=== PATIENT | male | born 1990 | race American Indian/Alaskan Native ===

== ENCOUNTER 2016-12-21 07:41 | Emergency (ER) | payer SELFPAY ==
[2016-12-21 08:10] VITALS: BP 131/76
[2016-12-21 09:09] LABS: Bilirubin,Urine NEG (Negative); Blood,Urine NEG (Negative); Ketones,Urine NEG (Negative); Leukocyte Esterase,Urine NEG (Negative); Mucus,Urine FEW /HPF; Nitrite,Urine NEG (Negative); Protein,Urine <15 mg/dL mg/dL (Negative); Urobilinogen,Urine < 2.0 mg/dL (<2.0)
[2016-12-21] MEDS ORDERED: DECADRON IM STA (10:22)
--- NOTE | 2016-12-21 10:46 | Emergency Department Report ---
Entered by ISAAC SCHULER, acting as scribe for TOÑITO BELTRAN PA. ED Male HPI - General Chief complaint: Urogenital-Male Stated complaint: SOB/POSS UTI/POSS ALLERGIC REACTION Time Seen by Provider: 12/21/16 09:15 Source: patient Mode of arrival: Ambulatory Limitations: No Limitations - History of Present Illness Initial comments: 26 y/o male with no significant PMHx presents to the ED c/o a generalized rash that began 2 days ago. Associated symptoms include dyrsuria that began 1 month ago, episodic. Low back pain he thinks is work related, and penile redness, but he denies penile discharge, fever, chills, nausea, and vomiting. Abdominal pain. Took Benadryl for rash with no relief. Took Ibuprofen for dysuria with no relief. Notes that he was sexually active 2 months ago. NKDA. Patient has been here multiple times for similar complaints of genitourinary normal abnormality. He was treated in 2016 for epididymitis and was given doxycycline. Since that he is not concerned for STD he wants to know if he has a urinary tract infection. MD Complaint: dysuria Onset/Timin -: days(s) (generalized rash) Location: penis Radiation: none Severity: moderate Severity scale (0 -10): 7 Quality: burning Consistency: intermittent Improves with: none Worsens with: urination denies other symptoms, dysuria. denies: discharge, swelling, mass, urinary retention, blood in urine, fever, nausea/vomiting, incontinence, other (dysuria and cough, but reports shortness of breath) - Related Data Sexually active: Yes (2 months ago) Previous Rx's Medication Instructions Recorded Last Taken Type Acetaminophen/Codeine [Tylenol #3] 1 tab PO Q6H PRN #16 tab 02/19/15 Unknown Rx Cyclobenzaprine [Flexeril 10 MG 10 mg PO Q8H PRN #21 tablet 02/19/15 Unknown Rx TAB] Doxycycline [Vibramycin CAP] 100 mg PO Q12HR #20 capsule 11/04/15 Unknown Rx Cetirizine HCl [ZyrTEC] 10 mg PO QAM #6 capsule 12/21/16 Unknown Rx methylPREDNISolone [Medrol Dose 4 mg PO QAM #1 pack 12/21/16 Unknown Rx Vinicius] Allergies Allergy/AdvReac Type Severity Reaction Status Date / Time No Known Allergies Allergy Verified 12/21/16 08:06 ED Review of Systems Comment: All other systems reviewed and negative Constitutional: no symptoms reported. denies: chills, fever Eyes: denies: eye discharge ENT: denies: throat pain, congestion Respiratory: denies: cough, shortness of breath, SOB with exertion, SOB at rest , stridor, wheezing Cardiovascular: denies: chest pain, palpitations, edema, syncope Gastrointestinal: as per HPI. denies: abdominal pain, nausea, vomiting Genitourinary: dysuria. denies: urgency, frequency, hematuria, discharge, testicular pain, testicular mass Musculoskeletal: back pain (low back pain). denies: joint swelling, arthralgia , myalgia Skin: rash (generalized rash), other Neurological: denies: headache, numbness, paresthesias, confusion, abnormal gait , vertigo ED Past Medical Hx - Past Medical History Previous Medical History?: Yes Additional medical history: Testicular pain - Surgical History Past Surgical History?: No - Family History Family history: no significant - Social History Smoking Status: Former Smoker Substance Use Type: None - Medications Home Medications: Home Medications Medication Instructions Recorded Confirmed Last Taken Type Acetaminophen/Codeine [Tylenol #3] 1 tab PO Q6H PRN #16 tab 02/19/15 Unknown Rx Cyclobenzaprine [Flexeril 10 MG 10 mg PO Q8H PRN #21 tablet 02/19/15 Unknown Rx TAB] Doxycycline [Vibramycin CAP] 100 mg PO Q12HR #20 capsule 11/04/15 Unknown Rx Cetirizine HCl [ZyrTEC] 10 mg PO QAM #6 capsule 12/21/16 Unknown Rx methylPREDNISolone [Medrol Dose 4 mg PO QAM #1 pack 12/21/16 Unknown Rx Vinicius] ED Physical Exam - General Limitations: No Limitations General appearance: alert, in no apparent distress - Head Head exam: Present: atraumatic, normocephalic - Eye Eye exam: Present: normal appearance, PERRL, EOMI Pupils: Present: normal accommodation - ENT ENT exam: Present: normal exam, normal orophraynx, mucous membranes moist, TM's normal bilaterally, normal external ear exam, other (urticarial rash present around mouth/nose, but no pharyngeal exudates, erythema, or swelling present) - Neck Neck exam: Present: normal inspection (supple), full ROM. Absent: tenderness, meningismus, lymphadenopathy - Respiratory Respiratory exam: Present: normal lung sounds bilaterally (no adventitious breath sounds). Absent: respiratory distress, wheezes, rales, rhonchi, stridor , chest wall tenderness, accessory muscle use, decreased breath sounds, prolonged expiratory - Cardiovascular Cardiovascular Exam: Present: regular rate, normal rhythm, normal heart sounds - GI/Abdominal GI/Abdominal exam: Present: soft (flat abdomen), normal bowel sounds, other. Absent: distended, tenderness, guarding, rebound, rigid - exam: Present: normal inspection, other (no vesicles or rash noted to penis) . Absent: testicular tenderness, urethral discharge, scrotal swelling, vertical testicular lie External exam: Present: normal external exam (civil design technician present during exam), other (urticarial rash present that is erythematous with no induration, flunctuance, or cellulitis. No penile discharge present.). Absent: erythema, swelling, lesions, lacerations, ecchymosis, bleeding - Extremities Exam Extremities exam: Present: normal inspection, full ROM - Back Exam Back exam: Present: normal inspection, full ROM. Absent: tenderness, CVA tenderness (R), CVA tenderness (L), muscle spasm, paraspinal tenderness, vertebral tenderness - Neurological Exam Neurological exam: Present: alert, oriented X3, normal gait - Psychiatric Psychiatric exam: Present: normal affect, normal mood - Skin Skin exam: Present: warm, dry, intact, rash (partially scattered erythematous urticarial rash present on anterior and posterior torso, extremities, mouth, and nose with no induration, flunctuancem or cellulitis), urticaria - Expanded Skin Exam Expanded Type of lesion: Present: rash Distribution of rash: generalized Description of rash: Present: erythematous, urticarial, other (sparsely scattered.). Absent: tenderness, swelling, discharge, fluctuant, indurated ED Course Vital Signs 12/21/16 08:07 Temperature 98.8 F Pulse Rate 84 Respiratory 18 Rate Blood Pressure 131/76 O2 Sat by Pulse 100 Oximetry - Reevaluation(s) Reevaluation #1: 12/21/16 10:31 Patient given Decadron 10 mg IM and emergency room for allergic dermatitis. ED Medical Decision Making - Lab Data Lab Results 12/21/16 Range/Units 08:35 Urine Color Yellow (Yellow) Urine Turbidity Clear (Clear) Urine pH 6.0 (5.0-7.0) Ur Specific [place] 1.019 (1.003-1.030) Urine Protein <15 mg/dl (Negative) mg/dL Urine Glucose (UA) Neg (Negative) mg/dL Urine Ketones Neg (Negative) mg/dL Urine Blood Neg (Negative) Urine Nitrite Neg (Negative) Urine Bilirubin Neg (Negative) Urine Urobilinogen < 2.0 (<2.0) mg/dL Ur Leukocyte Esterase Neg (Negative) Urine WBC (Auto) 1.0 (0.0-6.0) /HPF Urine RBC (Auto) 1.0 (0.0-6.0) /HPF Urine Mucus Few /HPF - Medical Decision Making ED course: Patient here complaining of penile rash and burning with urination. He reports urinary burning has been going on for 3 months and it comes and goes. He said the last time he was sexually active was 2 months ago. He does not have any concerns for sexually Transmitted disease. He is also having generalized rash that is sparsely scattered to his body urticarial in nature and unknown source. She reports itching to the rash areas. He is not having any respiratory symptoms. He was treated for epididymitis for 09/23/15 and was given doxycycline. At the time provider noted that he was having tenderness to his scrotal but patient is not having that at present. Urine clear and does not show any white blood cell or bacteria. 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 Patient urinary burning is chronic and episodic and I discussed with him that he will need to go to a urologist. I told him that he can start off with outside Medical Center and take it from there. He has no concerns for STD. Patient given Decadron 10 mg IM and emergency room and discharged home in stable condition. Patient was not having any blood in the urine or semen ED Disposition Clinical Impression: Dysuria, History of dysuria, Pruritic dermatitis Contact dermatitis Qualifiers: Contact dermatitis type: unspecified Contact dermatitis trigger: other trigger Qualified Code(s): L25.8 - Unspecified contact dermatitis due to other agents Disposition: DISCHARGED TO HOME OR SELFCARE Is pt being admited?: No Does the pt Need Aspirin: No Condition: Stable Instructions: Dysuria (ED), Contact Dermatitis (ED), Itchy Skin (ED) Additional Instructions: Please follow up at [facility] for Primary care visit for evaluation of chronic dysuria that is episodic. He will probably need to see a urologist. Please take medication as prescribed for contact dermatitis. Can also follow-up at [facility] if you have concerns for STD. Prescriptions: Cetirizine HCl [ZyrTEC] 10 mg PO QAM #6 capsule methylPREDNISolone [Medrol Dose Vinicius] 4 mg PO QAM #1 pack Referrals: [facility] [Outside] - 2-[address] [facility] [Outside] - 3-5 Days [facility] [Provider Group] - 3-5 Days Forms: Accompanied Note, Work/School Release Form(ED) This documentation as recorded by the GANGA aranda JASMINE,accurately reflects the service I personally performed and the decisions made by me,TOÑITO BELTRAN PA.
== END 2016-12-21 11:05 | disposition home or self-care (01) ==
LOC: ED 07:41
DX: L25.8 Unspecified contact dermatitis due to other agents (principal); R30.0 Dysuria; L30.8 Other specified dermatitis; Z87.891 Personal history of nicotine dependence
CPT/HCPCS: 81001; 96372; 99283; J1100

== ENCOUNTER 2019-12-31 03:19 | Emergency (ER) | payer OTHER ==
--- NOTE | 2019-12-31 06:08 | Emergency Department Report ---
ED Laceration HPI - HPI Chief Complaint: Wound/Laceration Stated Complaint: FALL INJURY TO CHIN Time Seen by Provider: 12/31/19 06:02 Laceration Symptoms: Yes Pain, No Foreign Body Sensation, No Numbness, No Weakness Other History: pt states slip and fall in bathroom this am, no loc, drove self to ed, complains of chin laceration 1 cm, no bleeding, no deformity, no crepitus, there are no exacerbating or relieving factors. ED Review of Systems ROS: Stated complaint: FALL INJURY TO CHIN Other details as noted in HPI Constitutional: denies: chills, fever Eyes: denies: eye pain, eye discharge, vision change ENT: denies: ear pain, throat pain Respiratory: denies: cough, shortness of breath, wheezing Cardiovascular: denies: chest pain, palpitations Endocrine: no symptoms reported Gastrointestinal: denies: abdominal pain, nausea, diarrhea Genitourinary: denies: urgency, dysuria Musculoskeletal: denies: back pain, joint swelling, arthralgia Skin: other (laceration chin ) Neurological: denies: headache, weakness, paresthesias Psychiatric: denies: anxiety, depression Hematological/Lymphatic: denies: easy bleeding, easy bruising ED Past Medical Hx - Past Medical History Previous Medical History?: No Additional medical history: Testicular pain - Surgical History Past Surgical History?: No - Social History Smoking Status: Never Smoker - Medications Home Medications: Home Medications Medication Instructions Recorded Confirmed Last Taken Type Acetaminophen/Codeine [Tylenol #3] 1 tab PO Q6H PRN #16 tab 02/19/15 Unknown Rx Cyclobenzaprine [Flexeril 10 MG 10 mg PO Q8H PRN #21 tablet 02/19/15 Unknown Rx TAB] DOXYCYCLINE Hyclate [Vibramycin 100 mg PO Q12HR #20 capsule 11/04/15 Unknown Rx CAP] Cetirizine HCl [ZyrTEC] 10 mg PO QAM #6 capsule 12/21/16 Unknown Rx methylPREDNISolone [Medrol Dose 4 mg PO QAM #1 pack 12/21/16 Unknown Rx Vinicius] traMADoL [Ultram] 50 mg PO Q6HR PRN #12 tablet 12/31/19 Unknown Rx Laceration Physical Exam - Exam General: Vital signs noted. No distress. Alert and acting appropriately. Wound Length (cm): 1 Laceration Location: Head Laceration Exam: Yes Normal Distal CMS, No Foreign Body, No Exposed Tendon, Vessel, or Nerve, No Tendon Injury ED Course Vital Signs 12/31/19 03:23 Temperature 98.2 F - Laceration /Wound Repair Head Wound Location: face (chin laceration ) Wound Length (cm): 1 Wound's Depth, Shape: superficial Wound Explored: clean Irrigated w/ Saline (ccs): 20 Betadine Prep?: No (sterile saline ) Anesthesia: Lidocaine w/ Epi (1) Volume Anesthetic (ccs): 1 Wound Debrided: none required Wound Repaired With: sutures Suture Size/Type: 4:0 (vycril ), nylon Number of Sutures: 2 Layer Closure?: No Sterile Dressing Applied?: No Progress: This is a superficial chin laceration 1 cm, wound cleaned with sterile saline solution, anesthesia with 1% lidocaine with epi x1 cc. Wound closed with Vicryl 4.02 sutures, all bleeding is controlled, edges are well approximated, patient tolerated procedure with minimal distress. Patient given wound care instructions. Tetanus is up-to-date patient will follow-up with PCP in 2 days for wound check , sutures are dissolvable patient verbalizes agreement and understanding with discharge plan will be DC'd home in stable condition at this time. ED Medical Decision Making - Medical Decision Making Chin laceration repaired see procedure note. Patient given wound care instructions. All bleeding is controlled. Patient will follow-up with PCP in 2 days for wound check. There is no nerve, tendon, or muscle damage. Vital signs: T 98.2, R: 16, BP: 121/78, P:68 Critical care attestation.: If time is entered above; I have spent that time in minutes in the direct care of this critically ill patient, excluding procedure time. ED Disposition Clinical Impression: Chin laceration Qualifiers: Encounter type: initial encounter Qualified Code(s): S01.81XA - Laceration without foreign body of other part of head, initial encounter Disposition: DC-01 TO HOME OR SELFCARE Is pt being admited?: No Does the pt Need Aspirin: No Condition: Stable Instructions: Laceration (ED) Prescriptions: traMADoL [Ultram] 50 mg PO Q6HR PRN #12 tablet PRN Reason: Pain Referrals: PAM RAY MD [Staff Physician] - 3-5 Days Forms: Work/School Release Form(ED)
== END 2019-12-31 06:25 | disposition home or self-care (01) ==
LOC: ED 03:19
DX: S01.81XA Laceration without foreign body of other part of head, initial encounter (principal); Z79.899 Other long term (current) drug therapy; X58.XXXA Exposure to other specified factors, initial encounter; Y93.89 Activity, other specified; Y92.89 Other specified places as the place of occurrence of the external cause; Y99.8 Other external cause status
CPT/HCPCS: 99282